=== PATIENT | male | born 1995 | race Caucasian/White ===

== ENCOUNTER 2024-04-12 11:17 | Emergency (ER) | payer BC, MEDICAID ==
[~2024-04-12] VITALS: Ht 175.3 cm; Wt 78.7 kg
[2024-04-12] MEDS ORDERED: LOPE1TAB9 PO (13:32)
[2024-04-12] MEDS ORDERED: SODI1KIT2 (13:32)
[2024-04-12] MEDS ORDERED: GUAI600T78 PO (13:32)
[2024-04-12] MEDS ORDERED: PROM1SOL4 PO (13:32)
[2024-04-12] MEDS ORDERED: LORA-1126 PO (13:32)
[2024-04-12] MEDS ORDERED: FLUT1SPR5 (13:32)
[2024-04-12] MEDS ORDERED: AZIT-43 PO (13:32)
--- NOTE | 2024-04-12 13:32 | ED.PDOC ---
SOB-HPI HPI Comments 28 year old male with hx of asthma presents for URI symptoms Symptoms started 5 days ago C/o of productive cough with white phlegm, runny nose, nasal congestion, sore throat, diarrhea Also c/o chills that come and go Tried: OTC cough medication with some improvement Chief Complaint: Flu like Time Seen by MD: 12:19 Primary Care Provider: Amber Reviewed notes: Nurses Notes, Medications, Allergies Information Source: Patient Mode of Arrival: Ambulatory Past Medical History PAST MEDICAL HISTORY: GERD, Kidney Stones Surgical History: Denies all surgeries Family History Family History: Family hx of Cancer Social History Smoker: Cigarettes Alcohol: Denies ETOH Use Drugs: Marijuana Lives In: Home All Other Systems: Reviewed and Negative (Per HPI) Physical Exam General Appearance: No Apparent Distress, Normal HEENT: Normal ENT Inspection, Pharynx Normal, TMs Normal Neck: Full Range of Motion, Non-Tender, Normal, Normal Inspection Respiratory: Chest Non-Tender, Lungs Clear, No Accessory Muscle Use, No Respiratory Distress, Normal Breath Sounds Cardiovascular: No Edema, No JVD, No Murmur, No Gallop, Normal Peripheral Pulses, Regular Rate/Rhythm Breast Exam: Deferred Gastrointestinal: No Organomegaly, Non Tender, No Pulsatile Mass, Normal Bowel Sounds, Soft Genitalia: Deferred Pelvic: Deferred Rectal: Deferred Extremities: No calf tenderness, Normal capillary refill, Normal inspection, Normal range of motion, Non-tender, No pedal edema Musculoskeletal : Apperance: Normal Neurologic: Alert, veterans rehabilitation counselor II-XII nml as Tested, No Motor Deficits, Normal Affect, Normal Mood, No Sensory Deficits Cerebellar Function: Normal Reflexes: Normal Skin: Dry, Normal Color, Warm Lymphatic: No Adenopathy Was a procedure done? Was a procedure done?: No Differential Dx Differential Diagnosis: Bronchitis X-Ray, Labs, Meds, VS Vital Signs Date Time Temp Pulse Resp B/P (MAP) Pulse Ox O2 Delivery O2 Flow Rate FiO2 04/12/24 13:45 83 20 100 Room Air* 0 21 04/12/24 13:45 83 20 139/85 (103) 100 04/12/24 11:37 98.3 83 20 139/85 (103) 100 X-Ray, Labs, Meds, VS Comment Empiric treatment Take medication as prescribed Discussed that cough can linger up to 6 weeks after viral URI ED precautions if cough does not alleviate or if cough worsens Supportive care and return precautions discussed Counseled viral infection and explained that antibiotics would not be helpful in resolving the illness sooner. Recommended vitamin C, rest, handwashing, and symptomatic care. Expect 2-week course with possibly of cough lingering up to 6 weeks. Nonpharmacological remedies for fluids has been recommended as well On reevaluation, patient had symptomatic improvement. Patient is stable for discharge at this time. External notes reviewed. Test results and diagnostic imaging interpreted. All diagnostic findings, discharge care, education and instructions provided Follow-up with PCP in 2 to 3 days Patient verbalized understanding and agreed to treatment plan Vital signs stable, afebrile, no acute distress noted Patient ambulatory with strong steady gait Advised to return precautions for any new or worsening symptoms, return to ER immediately for re-evaluation Patient is aware that the purpose of this visit was for an acute medical emergency requiring emergent stabilization. Chronic conditions, including malignancies have not been ruled out. Patient is instructed to follow up with PCP as directed and discharge instructions for continued care and workup. If unable to arrange follow-up, patient is to return to the emergency department for reassessment. Patient (parent or legal guardian if applicable) was given verbal and written discharge instructions and acknowledges understanding. Time of 1ST Reevaluation: 13:28 Reevaluation 1ST: Improved Patient Education/Counseling: Diagnosis, Treatment, Prognosis Family Education/Counseling: Diagnosis, Treatment, Prognosis Departure 1 Departure Time of Disposition: 13:28 Impression: Primary Impression: Viral syndrome Disposition: 01 HOME / SELF CARE / HOMELESS Condition: Fair e-Prescriptions Albuterol Sulfate (Albuterol Sulfate Hfa) 108 Mcg/Act Aer 108 MCG IN Q6HPRN PRN for 30 Days, #1 AER 0 Refills Prov: FABIANA HORAN SERVICE LOSS CONTROL CONSULTANT 04/12/24 Fluticasone Propionate (Nasal) (Flonase Allergy Relief) 50 Mcg/Act Spr 50 MCG NA DAILY for 30 Days, #30 SPRAY 0 Refills Prov: FABIANA HORAN NP 04/12/24 Loratadine (Loratadine) 10 Mg Tab 10 MG PO DAILY for 30 Days, #30 TAB 0 Refills Prov: FABIANA HORAN SERVICE LOSS CONTROL CONSULTANT 04/12/24 Sodium Chloride-Sodium Bicarbo (Neti Pot Kit Sinus Wash/C 2300-700 mg) 1 Kit Kit 1 KIT NA UD for 30 Days, #1 KIT 0 Refills Prov: FABIANA HORAN VINCENT 04/12/24 Guaifenesin (Mucinex) 600 Mg Tab 1 TAB PO BID for 7 Days, #14 TAB 0 Refills Prov: FABIANA HORAN SERVICE LOSS CONTROL CONSULTANT 04/12/24 Promethazine-Dm (Promethazine Dm 6.25-15 mg/5Ml) 1 Kayleen Kayleen 5 ML PO TIDP PRN for 10 Days, #150 ML 0 Refills Prov: AUNGFABIANA NP 04/12/24 Loperamide HCl (Loperamide HCl) 2 Mg Tab 2 MG PO UD for 7 Days, #28 TAB 0 Refills Prov: KHUSHBU HORANO Nora VINCENT 04/12/24 Azithromycin (Azithromycin) 250 Mg Tab 250 MG PO DAILY MDD 500 for 5 Days, #6 TAB 0 Refills 2 TABLETS ORALLY ON DAY ONE, THEN 1 TABLET ORALLY DAILY FOR 4 DAYS Prov: FABIANA HORAN VINCENT 04/12/24 Discharged With: Self Critical Care Note Critical Care Time?: No Stability Stability form required: No Heart Score Heart Score: Heart Score Response (Comments) Value History N/A 0 EKG N/A 0 Age N/A 0 Risk Factors N/A 0 Troponin N/A 0 Total 0 FABIANA HORAN NP Apr 12, 2024 13:32
[2024-04-12 13:45] VITALS: BP 139/85; PULSE 83; RESP 20; O2SAT 100
[2024-04-12] MEDS ORDERED: ALBU108A5 IN (14:07)
== END 2024-04-12 14:07 | disposition home or self-care (01) ==
LOC: ER 11:17
DX: B34.9 Viral infection, unspecified (principal); F17.210 Nicotine dependence, cigarettes, uncomplicated; J45.909 Unspecified asthma, uncomplicated; K21.9 Gastro-esophageal reflux disease without esophagitis